=== PATIENT | male | born 1960 | race Caucasian/White ===

== ENCOUNTER 2017-01-25 11:30 | Emergency (ER) | payer OTHER ==
[~2017-01-25] VITALS: Ht 182.9 cm; Wt 103.0 kg
[2017-01-25 13:13] VITALS: BP 138/71
== END 2017-01-25 13:05 | disposition home or self-care (01) ==
LOC: ED 11:30
DX: S96.911A Strain of unspecified muscle and tendon at ankle and foot level, right foot, initial encounter (principal); I10 Essential (primary) hypertension; E78.00 Pure hypercholesterolemia, unspecified; Z88.0 Allergy status to penicillin; Z79.899 Other long term (current) drug therapy; Z95.5 Presence of coronary angioplasty implant and graft; Z86.79 Personal history of other diseases of the circulatory system; W22.8XXA Striking against or struck by other objects, initial encounter; Y93.89 Activity, other specified; Y99.8 Other external cause status; Y92.89 Other specified places as the place of occurrence of the external cause

== ENCOUNTER 2018-12-20 06:24 | Emergency (ER) | payer OTHER ==
[~2018-12-20] VITALS: Ht 182.9 cm; Wt 102.1 kg
[2018-12-20 06:26] VITALS: Ht 182.9 cm; Wt 102.1 kg
[2018-12-20 07:25] LABS: microscopic required? NO
[2018-12-20 07:43] LABS: BASOPHIL % 0.5 % (0-2); PLATELET COUNT 200 x10^3mcL (130-400); RED CELL DISTRIBUTION WIDTH 12.6 % (11.5-14.5)
[2018-12-20 07:46] LABS: CALCIUM 8.6 mg/dL (8.5-10.1); CARBON DIOXIDE 30.3 mmol/L (21-32); CREATININE SERUM 2.1 mg/dL (0.7-1.3); POTASSIUM SERUM 3.4 mmol/L (3.5-5.1)
[2018-12-20 07:47] LABS: urine erythrocyte NEGATIVE (NEGATIVE)
[2018-12-20 07:50] LABS: AMPHETAMINE QUAL UR NONE DETECTED (See below)
[2018-12-20 07:58] LABS: ALBUMIN 3.9 g/dL (3.4-5.0); BILIRUBIN TOTAL 0.9 mg/dL (0.20-1.00); T4(THYROXINE) 6.7 ug/dL (4.7-13.3); TOTAL PROTEIN, SERUM 7.8 g/dL (6.4-8.2); URIC ACID 12.6 mg/dL (3.5-7.2)
[2018-12-20 10:05] VITALS: BP 104/55
== END 2018-12-20 10:05 | disposition home or self-care (01) ==
LOC: ED 06:24
PROVIDERS: Emergency Medicine
DX: M10.071 Idiopathic gout, right ankle and foot (principal); I12.9 Hypertensive chronic kidney disease with stage 1 through stage 4 chronic kidney disease, or unspecified chronic kidney disease; N18.4 Chronic kidney disease, stage 4 (severe); D64.9 Anemia, unspecified; E78.00 Pure hypercholesterolemia, unspecified; Z88.0 Allergy status to penicillin; Z88.5 Allergy status to narcotic agent; Z98.890 Other specified postprocedural states
CPT/HCPCS: 83880; 85378; J1100; J1885; J1940; Q0092

== ENCOUNTER 2019-04-28 21:20 | Inpatient (IN) | payer OTHER ==
[~2019-04-28] VITALS: Ht 182.9 cm; Wt 100.3 kg
--- NOTE | 2019-04-28 21:45 | NUR ---
PT PRESENTS TO ED WITH C/O SUDDEN ONSET SOB AND DIAPHORESIS THAT WOKE HIM UP IN THE MIDDLE OF THE NIGHT. PER PT HE ALSO HAD ASSOCIATED JAW PAIN. PT STATES IT FELT THE EXACT SAME WAY WHEN HE HAD HIS LAST HEART ATTACK 7/8 YEARS AGO. PT HAS HX OF CARDIAC STENTS FROM THAT EPISODE WELL HX OF CHF, BORDERLINE DIABETES, AND 50% OF KIDNEY FUNCTION. PT HAS CLEAR LUNG SOUNDS BILATERALLY HOWEVER IS UNABLE TO TAKE FULL DEEP BREATHES. PT DENIES CHEST PAIN AT THIS TIME. PT STATES THE PAIN PRIOR WAS NON RADIATING. PT HAS BL PITTING EDEMA TO LOWER EXTREMITIES. PT APPEARS PALE AND MOIST AT THIS TIME. PT CONNECT TO FULL CM AND PULSE OX MONITORS. PT ABLE TO SPEAK IN CLEAR AND FULL SENTENCES. AT BEDSIDE. AWAITING MSE AT THIS TIME. NAD AT THIS TIME
--- NOTE | 2019-04-28 21:52 | NUR ---
MD LUCAS AT BESIDE FOR MSE
[2019-04-28 22:20] LABS: ALBUMIN 3.4 g/dL (3.4-5.0); BILIRUBIN TOTAL 0.9 mg/dL (0.20-1.00); CALCIUM 8.1 mg/dL (8.5-10.1); CARBON DIOXIDE 32.9 mmol/L (21-32); CREATININE SERUM 2.8 mg/dL (0.7-1.3); TOTAL PROTEIN, SERUM 7.3 g/dL (6.4-8.2)
[2019-04-28 22:23] LABS: POTASSIUM SERUM 2.9 mmol/L (3.5-5.1)
[2019-04-28 22:25] LABS: BASOPHIL % 0.4 % (0-2); PLATELET COUNT 175 x10^3mcL (130-400); RED CELL DISTRIBUTION WIDTH 13.5 % (11.5-14.5)
[2019-04-28] MEDS ORDERED: ACETAMINOPHEN-H1 TAB PO (22:37)
[2019-04-28] MEDS ORDERED: ZANAFLEX4 MG PO (22:37)
[2019-04-28] MEDS ORDERED: PROBENECID500 MG PO (22:38)
[2019-04-28] MEDS ORDERED: NOR10 PO (22:38)
[2019-04-28] MEDS ORDERED: AMBIEN5 MG PO (22:39)
[2019-04-28] MEDS ORDERED: LOPRESSOR50 M1 PO (22:39)
[2019-04-28] MEDS ORDERED: LASIX40 MG PO (22:40)
[2019-04-28] MEDS ORDERED: CLOPIDOGREL75 M1 PO (22:41)
[2019-04-28] MEDS ORDERED: LIPITOR40 MG PO (22:41)
[2019-04-28] MEDS ORDERED: INDOMETHACIN50 MG PO (22:41)
[2019-04-28] MEDS ORDERED: ZOHYDRO ER15 M1 PO (22:41)
[2019-04-28] MEDS ORDERED: AMITIZA24 MC1 PO (22:42)
--- NOTE | 2019-04-28 22:59 | NUR ---
PT REQUESTING PILLOW. STATES A LITTLE ANXIOUS DUE TO PENDING RESULTS.
--- NOTE | 2019-04-28 23:24 | NUR ---
[facility] CONTACTED FOR CHEST XRAY. AWARE IT WAS NOT TAKEN. XRAY STATES THAT THEY WILL DO IT NOW
--- NOTE | 2019-04-28 23:25 | NUR ---
SURPRISED ABOUT PT BNP. STATES ORDERING REPEAT DUE TO PT CONDITION AND BL LE PITTING EDEMA
--- NOTE | 2019-04-28 23:56 | NUR ---
PT WITH MEDICAL STUDENTS AT THIS TIME. ANSWERING QUESTIONS APPROPRIATELY.
--- NOTE | 2019-04-29 00:10 | NUR ---
REPORT GIVEN TO MAURO SAEZ. ALL QUESTIONS AND CONCERNS ADDRESSED AT THIS TIME
--- NOTE | 2019-04-29 00:21 | NUR ---
PT RECEIVED FROM ED VIA GURNEY ACCOMPANIED BY NURSE AND PT'S SPOUSE. PT A/O X4, ABLE TO MAKE NEEDS, PT DENIES ANY H/A OR DIZZINESS. TELE #32, SR WITH BBB, PT ADMITTED FOR CP, BUT DENIES HAVING ANY CP/PRESSURE AT THIS TIME. PULSES PALPABLE, +2 PITTING EDEMA TO BLE. BREATHING IS EVEN AND UNLABORED ON RA, PT DENIES SOB, NO RESP DISTRESS NOTED. ABD SOFT AND ROUND, BOWEL TONES ACTIVE X4 QUAD, PT DENIES ANY N/V. VOIDS FREELY, BRP. MILD GENERALIZED WEAKNESS, AMBULATORY WITH STEADY GAIT. SKIN IS WARM AND DRY, INTACT. PT DENIES HAVING ANY PAIN AT THIS TIME. SL TO RAC, PATENT AND INTACT, SITE WNL. ORIENTED PT TO CALL LIGHT AND SURROUNDING. NO ACUTE DISTRESS NOTED. CALL LIGHT WITHIN REACH. WILL CONT TO MONITOR.
[2019-04-29 00:39] VITALS: BP 113/59
[2019-04-29 00:46] VITALS: Ht 182.9 cm; Wt 100.3 kg
[2019-04-29 01:00] LABS: CHOLESTEROL/HDL RATIO 2.8
[2019-04-29 05:21] VITALS: BP 117/62
--- NOTE | 2019-04-29 06:27 | NUR ---
PT SLEPT AT INTERVALS THROUGHOUT THE EVENING. BREATHING IS EVEN AND UNLABORED, NO RESP DISTRESS NOTED. PT DENIES HAVING ANY PAIN AT THIS TIME. SL TO RAC, INTACT. NO ACUTE CHANGES ENCOUNTERED DURING SHIFT, ALL NEEDS MET AND ANTICIPATED. SPOUSE AT BEDSIDE. CALL LIGHT WITHIN REACH. WILL ENDORSED CARE TO AM NURSE.
[2019-04-29 06:51] LABS: CALCIUM 8.6 mg/dL (8.5-10.1); CARBON DIOXIDE 30.9 mmol/L (21-32); MAGNESIUM 2.4 mg/dL (1.8-2.4); PHOSPHOROUS 2.9 mg/dL (2.5-4.9); POTASSIUM SERUM 3.8 mmol/L (3.5-5.1)
--- NOTE | 2019-04-29 07:05 | NUR ---
RECIEVWED PT RESTING IN BED WITH NO C/O PAIN OR DISTRESS AT THIS TIME. A/O X4 WITH NO NUÑEZ OR DIZZINESS. TELE#32 CONNECTED TO PT, DENIES ANY CP OR PRESSURE. RAC IV CDI AND PATENT, NO REDNESS OR INFLAMMATION NOTED. SAFETY PRECAUTIONS IN PLACE, CALL LIGHT WITHIN REACH, WILL MONITOR.
[2019-04-29 07:50] LABS: BASOPHIL % 0.6 % (0-2); PLATELET COUNT 155 x10^3mcL (130-400); RED CELL DISTRIBUTION WIDTH 13.6 % (11.5-14.5)
[2019-04-29 08:39] VITALS: BP 133/73
--- NOTE | 2019-04-29 09:02 | NUR ---
NOROCO GIVEN PER EMAR FOR C/O BILATERAL FEET PAIN OF 5/10, WILL REASSESS.
[2019-04-29 12:45] VITALS: BP 111/55
--- NOTE | 2019-04-29 15:32 | NUR ---
NORCO GIVEN PER EMAR FOR C/O 5/10 FOOT PAIN, WILL REASSESS.
[2019-04-29 16:35] VITALS: BP 129/68
--- NOTE | 2019-04-29 19:10 | NUR ---
PT STABLE WITH NO C/O PAIN OR DISTRESS AT THIS TIME. TELE#32 CONNECTED TO PT, DENIES ANY CP OR PRESSURE. RAC INTACT AND PATENT WITH NO REDNESS OR INFLAMMATION. SAFETY PRECAUTIONS IN PLACE, CALL LIGHT WITHIN REACH, WILL ENDORSE TO NIGHT NURSE.
--- NOTE | 2019-04-29 19:30 | NUR ---
RECEIVED PT RESTING IN BED, NO ACUTE DISTRESS NOTED. AOX4, DENIES NUÑEZ/DIZZINESS. TELE #32, SR 67 W/ PVC'S. DENIES CP. PULSES PALPABLE BILAT, PT REPROTS A GOUT FLARE-UP WILL MEDICATE PER ORDER. RESP EVEN AND UNLABORED ON RA, DENIES SOB. BRP. AMB. SKIN INTACT. BILAT FEET PAIN MANAGED WITH NORCO AT THIS TIME, WILL INQUIRE ABOUT PT KAREEM EGOUT MEDICATION. IV SITE TO THE [facility] PATENT, SALINE LOCKED AT THIS TIME, CALL LIGHT WITHIN REACH, BED IN LOWST POSITION ,WILL CONTINUE TO MONITOR.
[2019-04-29 20:51] VITALS: BP 138/62
--- NOTE | 2019-04-30 05:10 | NUR ---
PT RESTED IN INTERVALS DURING SHIFT, NO SCUTE CHNAGES OCCURRING OVERNIGHT. PT MEDICATED WITH INDOCIN AND NORCO FOR GOUT PAIN, PT ABLE TO SLEEP WELL AFTER SLEEP AID PROVIDED. IV SITE REMAINS PATENT TO [facility], SALINE LOCKED AT THIS TIME. ALL COMFORT AND SAFETY MEASURES PROVIDED FOR, CALL LIGHT WITHIN REACH, BED INLOWEST POSITION, WILL CONTINUE TO MONITOR.
[2019-04-30 05:51] VITALS: BP 135/66
[2019-04-30 06:28] LABS: BASOPHIL % 0.5 % (0-2); PLATELET COUNT 188 x10^3mcL (130-400); RED CELL DISTRIBUTION WIDTH 13.6 % (11.5-14.5)
[2019-04-30 06:44] LABS: CALCIUM 9.1 mg/dL (8.5-10.1); CARBON DIOXIDE 32.4 mmol/L (21-32); CREATININE SERUM 1.3 mg/dL (0.7-1.3); POTASSIUM SERUM 3.7 mmol/L (3.5-5.1)
--- NOTE | 2019-04-30 07:25 | NUR ---
RECEIVED PT. IN BED A/A/O X3. NO SOB, NO N/V NOTED. PT. DENIES ANY PAIN AT THIS TIME. IV SITE NOTED TO R AC. BED IN LOW POS., CALL LIGHT WITHIN REACH. SIDE RAILS UP X3.
[2019-04-30 08:52] VITALS: BP 102/60
--- NOTE | 2019-04-30 11:40 | NUR ---
D/C HOME INSTRUCTIONS GIVEN TO PT. WHO VERBALIZED UNDERSTANDING OF INSTRUCTIONS. IV H/L TO R AC REMOVED. TELE. MONITOR #32 REMOVED AND RETURNED TO TELE. MONITOR STATION.
--- NOTE | 2019-04-30 12:06 | NUR ---
PT. IS BEING DISCHARGED IN STABLE CONDITION. PT. DECLINED TO BE WHEELED OUT IN THE WHEELCHAIR. PT. STATED " I CAN WALK." ALL BELONGINGS SENT HOME WITH PT. UPON DISCHARGE. ACCOMPANIED BY HIS AT THE TIME OF DISCHARGE.
== END 2019-04-30 12:07 | disposition home or self-care (01) | DRG 311 ==
LOC: ED 21:20 → DU 23:49
PROVIDERS: Emergency Medicine; ADMIT Internal Medicine
DX: I24.9 Acute ischemic heart disease, unspecified (principal); N17.0 Acute kidney failure with tubular necrosis; I25.10 Atherosclerotic heart disease of native coronary artery without angina pectoris; E87.6 Hypokalemia; I12.9 Hypertensive chronic kidney disease with stage 1 through stage 4 chronic kidney disease, or unspecified chronic kidney disease; N18.9 Chronic kidney disease, unspecified; M10.9 Gout, unspecified; I25.2 Old myocardial infarction; Z68.30 Body mass index [BMI] 30.0-30.9, adult; Z87.891 Personal history of nicotine dependence; Z95.5 Presence of coronary angioplasty implant and graft; Z88.5 Allergy status to narcotic agent; Z88.0 Allergy status to penicillin; E78.00 Pure hypercholesterolemia, unspecified
CPT/HCPCS: 83880; 87804; G0378; J1940; Q0092